=== PATIENT | male | born 2000 | race Caucasian/White ===

== ENCOUNTER 2024-01-19 10:58 | Emergency (ER) | payer MEDICAID ==
[~2024-01-19] VITALS: Ht 172.7 cm; Wt 65.0 kg
[2024-01-19 11:01] VITALS: O2SAT 99
[2024-01-19] MEDS: IBUPROFEN 800MG TABLET PO ONE (12:03)
[2024-01-19] MEDS ORDERED: HYDR-4001 MT (12:22)
[2024-01-19] MEDS ORDERED: IBUP-2030 MT (12:22)
[2024-01-19 13:32] VITALS: BP 128/76; PULSE 92; RESP 18; TEMP 36.89184; O2SAT 99
== END 2024-01-19 13:25 | disposition home or self-care (01) ==
LOC: ER 10:58
DX: S42.402A Unspecified fracture of lower end of left humerus, initial encounter for closed fracture (principal); Z79.899 Other long term (current) drug therapy; X58.XXXA Exposure to other specified factors, initial encounter; Y93.89 Activity, other specified; Y92.89 Other specified places as the place of occurrence of the external cause; Y99.8 Other external cause status
CPT/HCPCS: 29105; 73080; 73110; 99284; A4565